=== PATIENT | female | born 1990 | race Caucasian/White ===

== ENCOUNTER 2023-03-06 11:45 | Emergency (ER) | payer MEDICAID, SELFPAY ==
[2023-03-06 12:05] VITALS: BP 128/76; PULSE 74; RESP 16; TEMP 36.9; O2SAT 99; BMI 28.7
--- NOTE | 2023-03-06 12:10 | ED_ITS ---
HPI - Abdominal Pain General: Chief Complaint: Abdominal Pain Stated Complaint: N/V Time Seen by Provider: 03/06/23 12:06 Source: patient Mode of arrival: ambulatory History of Present Illness: 33-year-old female presents emergency room complaint of abdominal pain with nausea and vomiting began last evening. eating seems to make it worse. Nothing else seems to relieve it she tried various [id number] stomach remedies. No dysuria urgency or frequency no fever sweats or chills. Her only previous surgery was a section she did have a postop infection but that resolved and she has not had any further complications. MD elicited complaint: abdominal pain Onset (ago): day(s) (1) Pain Consistency: constant Location: Epigastric Severity: moderate Quality: cramping Exacerbating factors: nothing Associated Symptoms: Denies anorexia, belching, bloating, change in bowel habits, change in stool character, chills, coffee ground emesis, constipation, GI cramping, diarrhea, dyspepsia, dysuria, excessive flatus, fever(s), heartburn, hematochezia, hematuria, hematemesis, fecal incontinence, loose stools, melena, nausea, poor appetite, syncope and vomiting Review of Systems Const: Denies: fever(s) or chills Card: Denies: chest pain or syncope Resp: Denies: dyspnea GI: Denies: abdominal pain, nausea, vomiting, hematemesis, coffee ground emesis, heartburn, diarrhea, constipation, bloating, GI cramping, belching, excessive flatus, fecal incontinence, change in bowel habits, change in stool character, hematochezia or melena : Denies: dysuria, urinary frequency, urinary urgency or hematuria Musc: Denies: neck pain or back pain Skin/Breast: Denies: rash Physical Exam Const: COMMON NORMALS: no acute distress GENERAL APPEARANCE: cooperative and comfortable ORIENTATION/CONSCIOUSNESS: Yes awake, Yes oriented to person, Yes oriented to place and Yes oriented to time HENMT: COMMON NORMALS: normocephalic, atraumatic and hearing grossly normal bilaterally HEAD & SCALP: normocephalic and atraumatic Resp: COMMON NORMALS: normal respiratory effort, No retractions, No use of accessory muscles and clear to auscultation bilaterally AUSCULTATION: clear to auscultation bilaterally Cardio: COMMON NORMALS: regular rate, regular rhythm and No murmurs present (Cardio) RATE: regular rate RHYTHM: regular rhythm GI: COMMON NORMALS: Soft to palpation and No hepatosplenomegaly present AUSCULTATION: Yes normoactive bowel sounds PALPATION: Yes Soft to palpation, No Tenderness to palpation present (GI), No Guarding due to palpation present (GI) and Yes No hepatosplenomegaly present Extremity: COMMON NORMALS: normal to inspection, capillary refill normal, no clubbing, cyanosis or edema, no calf tenderness and no pedal edema Neuro: SENSORIUM/ORIENTATION: Yes oriented to person, Yes oriented to place and Yes oriented to time Skin: COMMON NORMALS: no rashes or lesions noted GENERAL SKIN EXAM: no rashes or lesions noted Course Vital Signs: Vital signs: Vital Signs Temperature 98.4 F 03/06/23 12:05 Pulse Rate 74 03/06/23 12:05 Respiratory Rate 16 03/06/23 12:05 Blood Pressure 128/76 03/06/23 12:05 Pulse Oximetry 99 03/06/23 12:05 Oxygen Delivery Me thod Room Air 03/06/23 12:05 MDM - Abdominal Pain Medical Decision Making Improved with GI cocktail. Laboratory studies unremarkable discharge patient home on pantoprazole Carafate as needed follow-up with primary care Medical Records I reviewed the patient's medical records. Lab Data I reviewed the patient's lab results. 03/06/23 12:14 03/06/23 12:14 Labs/Radiology: Laboratory Results WBC 10.54 10^3/uL (3.29-11.43) 03/06/23 12:14 RBC 4.65 10^6/uL (3.85-5.65) 03/06/23 12:14 Hgb 14.90 g/dL (11.27-16.99) 03/06/23 12:14 Hct 44.3 % (36-47) 03/06/23 12:14 MCV 95.3 fl (85-98) 03/06/23 12:14 MCH 32.0 pg (27-33) 03/06/23 12:14 MCHC 33.6 g/dL (30-55) 03/06/23 12:14 RDW 12.2 % (12.1-15.1) 03/06/23 12:14 Plt Count 308 10^3/cmm (157-399) 03/06/23 12:14 MPV 9.4 fL (7.4-10.4) 03/06/23 12:14 Neut % (Auto) 73.4 % 03/06/23 12:14 Lymph % (Auto) 17.7 % 03/06/23 12:14 Isabela % (Auto) 6.5 % 03/06/23 12:14 Eos % (Auto) 1.7 % 03/06/23 12:14 Baso % (Auto) 0.5 % 03/06/23 12:14 Neut # (Auto) 7.73 10^3/uL (1.8-7.7) H 03/06/23 12:14 Lymph # (Auto) 1.9 10^3/uL (0.8-4.8) 03/06/23 12:14 Isabela # (Auto) 0.7 10^3/uL (0.2-0.9) 03/06/23 12:14 Eos # (Auto) 0.2 10^3/uL (0.0-0.8) 03/06/23 12:14 Baso # (Auto) 0.1 10^3/uL (0.0-0.1) 03/06/23 12:14 Nucleated RBC % (auto) 0 % 03/06/23 12:14 Nucleated RBCs # 0.0 /100WBC 03/06/23 12:14 Sodium 135 mmol/L (136-145) L 03/06/23 12:14 Potassium 4.3 mmol/L (3.5-5.1) 03/06/23 12:14 Chloride 101 mmol/L (98-107) 03/06/23 12:14 Carbon Dioxide 23 mmol/L (22-29) 03/06/23 12:14 Anion Gap 15.3 (5-19) 03/06/23 12:14 BUN 9 mg/dL (6-20) 03/06/23 12:14 Creatinine 0.7 mg/dL (0.5-0.9) 03/06/23 12:14 GFR Calculation 95.8 mL/min (90-130) 03/06/23 12:14 Glucose 101 mg/dL (65-115) 03/06/23 12:14 Calculated Osmolality 279 mOsm/kg (285-295) L 03/06/23 12:14 Calcium 9.4 mg/dL (8.5-10.5) 03/06/23 12:14 Total Bilirubin 0.4 mg/dL (0.15-1.2) 03/06/23 12:14 AST 14 U/L (0-32) 03/06/23 12:14 ALT 15 U/L (0-33) 03/06/23 12:14 Alkaline Phosphatase 59 U/L (35-105) 03/06/23 12:14 Total Protein 7.8 g/dL (6.6-8.7) 03/06/23 12:14 Albumin 4.5 g/dL (3.5-5.2) 03/06/23 12:14 Globulin 3.3 g/dL (1.3-4.6) 03/06/23 12:14 Lipase 17 U/L (13-60) 03/06/23 12:14 HCG, Qual Negative (Negative) 03/06/23 12:14 All radiology interpretation(s) finalized by discharge Discharge Plan Discharge Patient Disposition: Home Clinical Impression: GERD (gastroesophageal reflux disease) Condition: Stable Prescriptions: New Protonix 40 mg tablet,delayed release (DR/EC) 40 mg PO DAILY 56 Days Qty: 60 0RF Carafate 1 gram tablet 1 g PO Q6H PRN (Reason: stomach upset/pain) Qty: 90 0RF Discharge Orders: Discharge ED (Routine); Ordered 03/06/23 Ordered By: Franco Sanders Discharge Diet: As Directed Discharge Activity: Increase activity as tolerated Patient Instructions: Diet for Stomach Ulcers and Gastritis (ED), GERD (Gastroesophageal Reflux Disease) (ED), Opioid Safety, Pain Management Activity Restrictions/Additional Instructions: Thank you for choosing [facility] for your healthcare needs today. Please realize this is an emergency room and that we are providing you with a medical screening exam and this may not be complete and all inclusive of all the testing and or work up that you may need to determine your ailment or severity of your illness. It is very important that you follow up as instructed or that you return to the Emergency Department should you have concerns or if your condition changes or worsens in any way. Follow-up with your primary care provider if symptoms persist Coding Level of Care Code ED [employer] for [facility]
[2023-03-06 12:27] LABS: Basophils # 0.1 10^3/uL (0.0-0.1); Basophils % 0.5 %; Eosinophils # 0.2 10^3/uL (0.0-0.8); Eosinophils % 1.7 %; Hematocrit 44.3 % (36-47); Lymphocytes # 1.9 10^3/uL (0.8-4.8); Lymphocytes % 17.7 %; Mean Corpuscular HGB Conc 33.6 g/dL (30-55); Mean Corpuscular Volume 95.3 fl (85-98); Mean Platelet Volume 9.4 fL (7.4-10.4); Monocytes # 0.7 10^3/uL (0.2-0.9); Monocytes % 6.5 %; Neutrophils # 7.73 10^3/uL (1.8-7.7); Neutrophils % 73.4 %; Nucleated Red Blood Cells % 0 %; Platelet Count 308 10^3/cmm (157-399); Red Blood Count 4.65 10^6/uL (3.85-5.65); Red Cell Distribution Width 12.2 % (12.1-15.1); White Blood Count 10.54 10^3/uL (3.29-11.43)
[2023-03-06 12:43] LABS: HCG, Serum Qual Negative (Negative)
[2023-03-06 12:45] LABS: Alanine Aminotransferase 15 U/L (0-33); Albumin Level 4.5 g/dL (3.5-5.2); Alkaline Phosphatase 59 U/L (35-105); Anion Gap 15.3 (5-19); Aspartate Amino Transferase 14 U/L (0-32); Blood Urea Nitrogen 9 mg/dL (6-20); Calcium 9.4 mg/dL (8.5-10.5); Carbon Dioxide 23 mmol/L (22-29); Chloride 101 mmol/L (98-107); Globulin 3.3 g/dL (1.3-4.6); Glomerular Filtration Rate 95.8 mL/min (90-130); Glucose 101 mg/dL (65-115); Lipase 17 U/L (13-60); Osmolality Calculated 279 mOsm/kg (285-295); Potassium 4.3 mmol/L (3.5-5.1); Sodium 135 mmol/L (136-145); Total Bilirubin 0.4 mg/dL (0.15-1.2); Total Protein 7.8 g/dL (6.6-8.7)
[2023-03-06] MEDS: sodium chloride 0.9% 1,000 ML 999 ML IV (13:00)
[2023-03-06] MEDS: ondansetron 2 mg/ML SDV 2 mL 4 MG IVP (13:00)
[2023-03-06] MEDS: lidocaine 2% viscous 15 ML, aluminum-mag hydrox-simethicon 30 ML, sucralfate oral liq 1 GM PO (13:01)
== END 2023-03-06 14:48 | disposition home or self-care (01) ==
PROVIDERS: Emergency Provider Family Medicine
DX: K21.9 Gastro-esophageal reflux disease without esophagitis (principal)
CPT/HCPCS: 36415; 80053; 83690; 84703; 85025; 96374; 99284; J2405; J7030

== ENCOUNTER 2024-08-10 11:28 | Outpatient (CLI) | payer MEDICAID, SELFPAY ==
--- NOTE | 2024-08-10 11:39 | XR_ITS ---
WS: [id number] Exam: XR chest 2V* [id number] Date/Time of Exam: 08/10/2024 11:42 AM Reason For Exam: SUBACUTE COUGH Lungs are fully inflated and clear. Normal heart size unremarkable bony structures. The mediastinum is normal in contour. XR/XR chest 2V* [id number] IMPRESSION: 1. Normal chest.
== END 2024-08-10 11:29 | disposition home or self-care (01) ==
LOC: RAD 11:34
PROVIDERS: PCP Family Medicine; Visit Provider Family Medicine
DX: R05.2 Subacute cough (principal)
CPT/HCPCS: 71046